=== PATIENT | male | born 1940 | race Caucasian/White ===

== ENCOUNTER 2019-08-25 13:30 | Inpatient (IN) | payer MEDICARE, OTHER ==
--- NOTE | 2019-08-25 14:24 | EDM.PDOC ---
ED HPI GENERAL MEDICAL PROBLEM - General Stated Complaint: SOB, MORE CONFUSED Time Seen by Provider: 08/25/19 14:18 Source of Information: Reports: Patient, Family History Limitations: Reports: Other (Patient is essentially nonverbal (mumbling and moaning only) and cannot provide me with any history.) - History of Present Illness INITIAL COMMENTS - FREE TEXT/NARRATIVE: 79-year-old male who presents to the emergency department via private vehicle with his and his brother. Apparently according to the nursing staff he was more responsive at this time but as I am seeing him now he is only mumbling and will not respond to any conversant fashion and is basically curved in a position on the bed according to the , the patient has been falling frequently over the past month (falling 4-5 times) and over the past 2 weeks he has had decreased activity with only walking very short distances with his walker with help from the and then basically going back to bed. Over the past 2-3 days, the reports that he has basically been in bed most of the time responding well to her at all. He has had decreased by mouth intake with only taking 2-3 spoonfuls of soup last night and a quarter of his grilled cheese sandwich. He also has been requiring or asking for his inhaler frequently and the reports that he seems to be quite short of breath with activity. She also reports that his urine has been dark and foul-smelling and he has had decreased urine output over the past 1-2 days as well. No cough. No fevers. No vomiting. The provides me with pretty much all the history. He has not really complained of pain in any place but he is not able to tell me if he has any pain or to quantitate or qualitate any pain. There are no other associated signs or symptoms. There are no other modifying factors. The tells me that she can basically does not take care with him at this point. Onset: Other (Progressively worsening over the past 2 weeks with much worse over the past 2-3 days.) Duration: Getting Worse Location: Reports: Other (Patient is unable to quantitate or qualitate) Quality: Reports: Other (Unknown) Improves with: Reports: Other Worsens with: Reports: Other (Unknown) - Related Data Allergies Allergy/AdvReac Type Severity Reaction Status Date / Time atorvastatin [From Lipitor] Allergy Cannot Verified 08/25/19 14:08 Remember cefuroxime [From Ceftin] Allergy Nausea Verified 08/25/19 14:08 clindamycin Allergy Itching Verified 08/25/19 14:08 sulfamethoxazole Allergy Cannot Verified 08/25/19 14:08 [From Bactrim] Remember trimethoprim [From Bactrim] Allergy Cannot Verified 08/25/19 14:08 Remember Home Meds: Home Meds Ciprofloxacin HCl [Cipro] 500 mg PO BID #20 tablet 06/08/18 [Rx] Albuterol/Ipratropium [Combivent Respimat] 1 puff QID 06/18/18 [History] Budesonide/Formoterol [Symbicort 160-4.5 MCG] 2 puff BID 06/18/18 [History] ClonazePAM [KlonoPIN] 0.5 - 1 mg PO BEDTIME 06/18/18 [History] Donepezil HCl 10 mg BEDTIME 06/18/18 [History] Finasteride 5 mg DAILY 06/18/18 [History] Ibuprofen [Motrin] 200 mg PO Q4H PRN 06/18/18 [History] Multivitamin [Multivitamins] 1 each PO DAILY 06/18/18 [History] Simvastatin [Zocor] 40 mg PO DAILY 06/18/18 [History] Tamsulosin HCl 0.4 mg DAILY 06/18/18 [History] Past Medical History Cardiovascular History: Reports: High Cholesterol Respiratory History: Reports: Asthma, Pneumonia, Recurrent Genitourinary History: Reports: BPH, Prostate Disorder, Retention, Urinary Musculoskeletal History: Reports: Fracture, Neck Pain, Chronic Other Musculoskeletal History: hx fx elbow Neurological History: Reports: Alzheimers Disease Psychiatric History: Reports: Alzheimers Disease, Dementia, Depression - Infectious Disease History Infectious Disease History: Reports: Chicken Pox, Measles - Past Surgical History HEENT Surgical History: Reports: Cataract Surgery GI Surgical History: Reports: Appendectomy, Hernia Repair/Other Male Surgical History: Reports: Suprapubic Catheter Placement, Vasectomy Neurological Surgical History: Reports: Scoliosis (Back surgery as a teenager but with no metal hardware.) Social & Family History - Tobacco Use Smoking Status *Q: Former Smoker (Smoked a pipe briefly about 40 years ago.) - Caffeine Use Caffeine Use: Reports: Coffee - Alcohol Use Alcohol Use History: No - Living Situation & Occupation Living situation: Reports: Occupation: Retired Social History Comment: Lives at home alone with his . It should be noted that the patient is a DNR/DNI. ED ROS GENERAL - Review of Systems Review Of Systems: Unable To Obtain (The patient is essentially nonverbal and he cannot provide me with any of this information. The review of systems is limited in what I can obtain from the and that is in the history of present illness.) Reason Not Obtained: Dementia and underlying acute serious medical condition ED EXAM, GENERAL - Physical Exam Exam: See Below Exam Limited By: No Limitations General Appearance: Lethargic, Thin, Cachetic Eye Exam: Bilateral Eye: Normal Inspection, PERRL Ears: Other (Wax in both ear canals) Ear Exam: Bilateral Ear: Auricle Normal Nose: Normal Inspection, Normal Mucosa, No Blood Throat/Mouth: Other (Dry membranes) Head: Atraumatic, Normocephalic Neck: Normal Inspection, Non-Tender Respiratory/Chest: No Respiratory Distress, Lungs Clear, Normal Breath Sounds, No Accessory Muscle Use, Chest Non-Tender Cardiovascular: Normal Peripheral Pulses, Regular Rate, Rhythm, No Edema Peripheral Pulses: 2+: Radial (L), Radial (R) GI/Abdominal: Normal Bowel Sounds, Soft, Non-Tender, No Distention, Other (SVT and in place) Back Exam: No: CVA Tenderness (R), CVA Tenderness (L) Extremities: No Pedal Edema, Normal Capillary Refill (But with cool hands) Neurological: Confused (Slow to respond and mumbles. No effective conversation. Patient apparently was more verbal and more responsive earlier in the nursing staff.), Other (Movement of his arms and legs seem symmetric to avoidance.) Skin Exam: Dry, Wound/Incision (Minor skin abrasion on his left) EKG INTERPRETATION EKG Date: 08/25/19 Time: 14:18 Rhythm: NSR Rate (Beats/Min): 76 [place]: Normal P-Wave: Enlarged ST-T: Normal QT: Prolonged Comparison: NA - No Prior EKG Course - Vital Signs Last Recorded V/S: Last Vital Signs Temp 35.4 C 08/25/19 14:30 Pulse 81 08/25/19 15:31 Resp 22 H 08/25/19 15:31 BP 102/38 L 08/25/19 15:31 Pulse Ox 89 L 08/25/19 15:31 - Orders/Labs/Meds Orders: Active Orders 24 hr Category Date Time Status Admission Status [Patient Status] [ADT] Routine ADT 08/25/19 16:35 Active Patient Status Manage Transfer [TRANSFER] Routine ADT 08/25/19 16:37 Ordered EKG Documentation Completion [RC] ASDIRECTED Care 08/25/19 14:41 Active Chest 1V Frontal [CR] Stat Exams 08/25/19 14:39 Taken Head wo Cont [CT] Stat Exams 08/25/19 14:39 Taken CULTURE BLOOD [BC] Urgent Lab 08/25/19 15:20 Received CULTURE BLOOD [BC] Urgent Lab 08/25/19 15:30 Received UA W/MICROSCOPIC [URIN] Stat Lab 08/25/19 16:31 Received Levofloxacin/Dextrose 5%-Water [Levaquin in D5W 750 MG/ Med 08/25/19 16:30 Active 150 ML] 750 mg Premix Bag 1 bag IV ONETIME Sodium Chloride 0.9% [Normal Saline] 1,000 ml Med 08/25/19 14:45 Active IV ASDIRECTED Sodium Chloride 0.9% [Normal Saline] 500 ml Med 08/25/19 16:19 Active IV .BOLUS Sodium Chloride 0.9% [Saline Flush] Med 08/25/19 14:39 Active 10 ml FLUSH ASDIRECTED PRN Blood Culture x2 Reflex Set [OM.PC] Urgent Oth 08/25/19 14:43 Ordered Peripheral IV Insertion Adult [OM.PC] Routine Oth 08/25/19 14:39 Ordered EKG 12 Lead [EK] Routine Ther 08/25/19 14:39 Ordered Medication Orders Sodium Chloride (Normal Saline) 1,000 mls @ 100 mls/hr IV ASDIRECTED ELOISA Sodium Chloride (Normal Saline) 500 mls @ 999 mls/hr IV .BOLUS ONE Stop: 08/25/19 16:49 Last Admin: 08/25/19 16:22 Dose: 999 mls/hr Levofloxacin/Dextrose 750 mg/ (Premix) 150 mls @ 100 mls/hr IV ONETIME ONE Stop: 08/25/19 17:59 Sodium Chloride (Saline Flush) 10 ml FLUSH ASDIRECTED PRN PRN Reason: Keep Vein Open Labs: Laboratory Tests 08/25/19 08/25/19 08/25/19 Range/Units 14:39 15:20 15:20 WBC 8.7 (4.5-12.0) X10-3/uL RBC 3.25 L (4.30-5.75) x10(6)uL Hgb 9.7 L (13.5-17.8) g/dL Hct 31.0 (30.0-51.3) % MCV 95.3 (80-96) fL MCH 30.0 (27.7-33.6) pg MCHC 31.4 L (32.2-35.4) g/dL RDW 22.0 H (11.5-15.5) % Plt Count 170 (125-369) X10(3)uL MPV 6.8 L (7.4-10.4) fL Neut % (Auto) 70.4 (46-82) % Lymph % (Auto) 20.0 (13-37) % Crosby % (Auto) 8.7 (4-12) % Eos % (Auto) 0 L (1.0-5.0) % Baso % (Auto) 1 (0-2) % Neut # (Auto) 6.1 (1.6-8.3) # Lymph # (Auto) 1.7 (0.6-5.0) # Crosby # (Auto) 0.8 (0.0-1.3) # Eos # (Auto) 0.0 (0.0-0.8) # Baso # (Auto) 0.1 (0.0-0.2) # PT 15.2 H (8.7-11.1) INR 1.58 H (0.89-1.13) POC VBG pH (7.31-7.41) POC VBG pCO2 (41-51) mmHG POC VBG HCO3 (23-28) mmol/L POC VBG Total CO2 (24-29) mmol/L POC VBG Base Excess (-2-3) mmol/L Sodium 150 H D (135-145) mmol/L Potassium 4.7 (3.5-5.3) mmol/L Chloride 107 (100-110) mmol/L Carbon Dioxide 33 H (21-32) mmol/L BUN 56 H D (7-18) mg/dL Creatinine 1.5 H (0.70-1.30) mg/dL Est Cr Clr Drug Dosing TNP Estimated GFR (MDRD) 45 L (>60) BUN/Creatinine Ratio 37.3 H (9-20) Glucose 151 H (80-116) mg/dL Lactic Acid (0.4-2.0) mmol/L Calcium 9.9 (8.6-10.2) mg/dL Magnesium 2.8 H (1.8-2.5) mg/dL Total Bilirubin 0.8 (0.1-1.3) mg/dL AST 105 H (5-25) IU/L ALT 47 H (12-36) U/L Alkaline Phosphatase 224 H (56-112) IU/L Troponin I (<0.017-0.056) ng/mL C-Reactive Protein (0.5-0.9) mg/dL Total Protein 6.4 (6.0-8.0) g/dL Albumin 2.7 L (3.2-4.6) g/dL Globulin 3.7 g/dL Albumin/Globulin Ratio 0.7 08/25/19 08/25/19 08/25/19 Range/Units 15:20 15:20 15:20 WBC (4.5-12.0) X10-3/uL RBC (4.30-5.75) x10(6)uL Hgb (13.5-17.8) g/dL Hct (30.0-51.3) % MCV (80-96) fL MCH (27.7-33.6) pg MCHC (32.2-35.4) g/dL RDW (11.5-15.5) % Plt Count (125-369) X10(3)uL MPV (7.4-10.4) fL Neut % (Auto) (46-82) % Lymph % (Auto) (13-37) % [place] % (Auto) (4-12) % Eos % (Auto) (1.0-5.0) % Baso % (Auto) (0-2) % Neut # (Auto) (1.6-8.3) # Lymph # (Auto) (0.6-5.0) # Crosby # (Auto) (0.0-1.3) # Eos # (Auto) (0.0-0.8) # Baso # (Auto) (0.0-0.2) # PT (8.7-11.1) INR (0.89-1.13) POC VBG pH (7.31-7.41) POC VBG pCO2 (41-51) mmHG POC VBG HCO3 (23-28) mmol/L POC VBG Total CO2 (24-29) mmol/L POC VBG Base Excess (-2-3) mmol/L Sodium (135-145) mmol/L Potassium (3.5-5.3) mmol/L Chloride (100-110) mmol/L Carbon Dioxide (21-32) mmol/L BUN (7-18) mg/dL Creatinine (0.70-1.30) mg/dL Est Cr Clr Drug Dosing Estimated GFR (MDRD) (>60) BUN/Creatinine Ratio (9-20) Glucose (80-116) mg/dL Lactic Acid 4.2 H* (0.4-2.0) mmol/L Calcium (8.6-10.2) mg/dL Magnesium (1.8-2.5) mg/dL Total Bilirubin (0.1-1.3) mg/dL AST (5-25) IU/L ALT (12-36) U/L Alkaline Phosphatase (56-112) IU/L Troponin I < 0.017 L (<0.017-0.056) ng/mL C-Reactive Protein 5.4 H* (0.5-0.9) mg/dL Total Protein (6.0-8.0) g/dL Albumin (3.2-4.6) g/dL Globulin g/dL Albumin/Globulin Ratio 08/25/19 Range/Units 15:20 WBC (4.5-12.0) X10-3/uL RBC (4.30-5.75) x10(6)uL Hgb (13.5-17.8) g/dL Hct (30.0-51.3) % MCV (80-96) fL MCH (27.7-33.6) pg MCHC (32.2-35.4) g/dL RDW (11.5-15.5) % Plt Count (125-369) X10(3)uL MPV (7.4-10.4) fL Neut % (Auto) (46-82) % Lymph % (Auto) (13-37) % [place] % (Auto) (4-12) % Eos % (Auto) (1.0-5.0) % Baso % (Auto) (0-2) % Neut # (Auto) (1.6-8.3) # Lymph # (Auto) (0.6-5.0) # [place] # (Auto) (0.0-1.3) # Eos # (Auto) (0.0-0.8) # Baso # (Auto) (0.0-0.2) # PT (8.7-11.1) INR (0.89-1.13) POC VBG pH 7.33 (7.31-7.41) POC VBG pCO2 57.6 H (41-51) mmHG POC VBG HCO3 30.6 H (23-28) mmol/L POC VBG Total CO2 32 H (24-29) mmol/L POC VBG Base Excess 5 H (-2-3) mmol/L Sodium (135-145) mmol/L Potassium (3.5-5.3) mmol/L Chloride (100-110) mmol/L Carbon Dioxide (21-32) mmol/L BUN (7-18) mg/dL Creatinine (0.70-1.30) mg/dL Est Cr Clr Drug Dosing Estimated GFR (MDRD) (>60) BUN/Creatinine Ratio (9-20) Glucose (80-116) mg/dL Lactic Acid (0.4-2.0) mmol/L Calcium (8.6-10.2) mg/dL Magnesium (1.8-2.5) mg/dL Total Bilirubin (0.1-1.3) mg/dL AST (5-25) IU/L ALT (12-36) U/L Alkaline Phosphatase (56-112) IU/L Troponin I (<0.017-0.056) ng/mL C-Reactive Protein (0.5-0.9) mg/dL Total Protein (6.0-8.0) g/dL Albumin (3.2-4.6) g/dL Globulin g/dL Albumin/Globulin Ratio Meds: Medications Generic Name Dose Route Start Last Admin Trade Name Freq PRN Reason Stop Dose Admin Sodium Chloride 1,000 mls @ 100 mls/hr 08/25/19 14:45 Normal Saline IV ASDIRECTED ELOISA Sodium Chloride 500 mls @ 999 mls/hr 08/25/19 16:19 08/25/19 16:22 Normal Saline IV 08/25/19 16:49 999 mls/hr .BOLUS ONE Administration Levofloxacin/Dextrose 750 mg/ 150 mls @ 100 mls/hr 08/25/19 16:30 Premix IV 08/25/19 17:59 ONETIME ONE Sodium Chloride 10 ml 08/25/19 14:39 Saline Flush FLUSH ASDIRECTED PRN Keep Vein Open Discontinued Medications Generic Name Dose Route Start Last Admin Trade Name Freq PRN Reason Stop Dose Admin Sodium Chloride 500 mls @ 999 mls/hr 08/25/19 14:42 08/25/19 15:42 Normal Saline IV 08/25/19 15:12 999 mls/hr .BOLUS ONE Administration - Radiology Interpretation Free Text/Narrative:: Portable chest x-ray shows bilateral filtrates per the radiologist.. CT scan of head showed atrophy with minimal bilateral subdural hygromas. There is no evidence of any acute trauma or acute stroke per the radiologist. Patient apparently had an echocardiogram performed at [facility] on 2019 and was essentially normal with an ejection fraction of 65% and no regional wall motion abnormalities. There was grade 1 left ventricular diastolic dysfunction, moderate tricuspid regurgitation and mild mitral regurgitation. He did have some evidence of pulmonary artery hypertension. - Re-Assessments/Exams Free Text/Narrative Re-Assessment/Exam: 08/25/19 15:35: Chest x-ray shows bilateral pneumonias. The CT scan of his head showed no acute abnormality. Blood tests are pending at this time. The patient appears to be rather severely dehydrated and with his bilateral pneumonias and his severe weakness and altered mental status, he will need admission with IV fluid hydration and IV antibiotics. I will await the lab results and I will then discuss the patient's case with Dr. Hayes. 08/25/19 16:38: Patient has an anemia has evidence of an acute kidney injury and the labs do support moderate to severe dehydration. He has an elevated lactic acid level which I think is mostly due to the dehydration but may also be related to sepsis. The patient cannot be safely treated as an outpatient. He will need a greater then 2 midnight hospital stay his plan of care and he may need placement after treating his acute illness. I did call and discuss the patient's case with Dr. Hayes and he will admit the patient. Departure - Departure Time of Disposition: 16:40 Disposition: Admitted As Inpatient 65 Condition: Fair Clinical Impression: Acute kidney injury, Severe dehydration Bilateral pneumonia Qualifiers: Pneumonia type: due to unspecified organism Lung location: lower lobe of lung Qualified Code(s): J18.9 - Pneumonia, unspecified organism Sepsis Qualifiers: Sepsis type: sepsis due to unspecified organism Sepsis acute organ dysfunction status: with acute organ dysfunction Severe sepsis acute organ dysfunction type : acute renal failure Acute renal failure type: unspecified Severe sepsis shock status: without septic shock Qualified Code(s): A41.9 - Sepsis, unspecified organism; R65.20 - Severe sepsis without septic shock; N17.9 - Acute kidney failure, unspecified Hypothermia Qualifiers: Encounter type: initial encounter Qualified Code(s): T68.XXXA - Hypothermia, initial encounter - Discharge Information Referrals: Shant Main MD [Primary Care Provider] - Sepsis Event Note - Focused Exam Vital Signs: Vital Signs Temp Temp Pulse Resp BP Pulse Ox 08/25/19 15:31 81 22 H 102/38 L 89 L 08/25/19 14:30 35.4 C 08/25/19 13:43 34.6 C L 78 20 112/91 H 99 Date Exam was Performed: 08/25/19 Time Exam was Performed: 16:38 - My Orders Last 24 Hours: My Active Orders 08/25/19 14:39 Chest 1V Frontal [CR] Stat Head wo Cont [CT] Stat Sodium Chloride 0.9% [Saline Flush] 10 ml FLUSH ASDIRECTED PRN Peripheral IV Insertion Adult [OM.PC] Routine EKG 12 Lead [EK] Routine 08/25/19 14:41 EKG Documentation Completion [RC] ASDIRECTED 08/25/19 14:43 Blood Culture x2 Reflex Set [OM.PC] Urgent 08/25/19 14:45 Sodium Chloride 0.9% [Normal Saline] 1,000 ml IV ASDIRECTED 08/25/19 15:20 CULTURE BLOOD [BC] Urgent 08/25/19 15:30 CULTURE BLOOD [BC] Urgent 08/25/19 16:19 Sodium Chloride 0.9% [Normal Saline] 500 ml IV .BOLUS 08/25/19 16:30 Levofloxacin/Dextrose 5%-Water [Levaquin in D5W 750 MG/150 ML] 750 mg Premix Bag 1 bag IV ONETIME 08/25/19 16:31 UA W/MICROSCOPIC [URIN] Stat 08/25/19 16:35 Admission Status [Patient Status] [ADT] Routine 08/25/19 16:37 Patient Status Manage Transfer [TRANSFER] Routine - Assessment/Plan Last 24 Hours: My Active Orders 08/25/19 14:39 Chest 1V Frontal [CR] Stat Head wo Cont [CT] Stat Sodium Chloride 0.9% [Saline Flush] 10 ml FLUSH ASDIRECTED PRN Peripheral IV Insertion Adult [OM.PC] Routine EKG 12 Lead [EK] Routine 08/25/19 14:41 EKG Documentation Completion [RC] ASDIRECTED 08/25/19 14:43 Blood Culture x2 Reflex Set [OM.PC] Urgent 08/25/19 14:45 Sodium Chloride 0.9% [Normal Saline] 1,000 ml IV ASDIRECTED 08/25/19 15:20 CULTURE BLOOD [BC] Urgent 08/25/19 15:30 CULTURE BLOOD [BC] Urgent 08/25/19 16:19 Sodium Chloride 0.9% [Normal Saline] 500 ml IV .BOLUS 08/25/19 16:30 Levofloxacin/Dextrose 5%-Water [Levaquin in D5W 750 MG/150 ML] 750 mg Premix Bag 1 bag IV ONETIME 08/25/19 16:31 UA W/MICROSCOPIC [URIN] Stat 08/25/19 16:35 Admission Status [Patient Status] [ADT] Routine 08/25/19 16:37 Patient Status Manage Transfer [TRANSFER] Routine
[2019-08-25] MEDS ORDERED: Sodium Chloride 0.9% 10 ML Syringe FLUSH PRN (14:39)
[2019-08-25] MEDS: Sodium Chloride 0.9% 500 ML IV ONE ×2 (15:42→16:22)
[2019-08-25] MEDS: Sodium Chloride 0.9% 1,000 ML IV SCH (16:55)
[2019-08-25] MEDS: Levofloxacin/Dextrose 5%-Water 750 MG in Premix Bag 1 BAG IV ONE (16:56)
--- NOTE | 2019-08-25 17:01 | CT ---
INDICATION: Altered mental status - dementia - trauma. CT HEAD WITHOUT CONTRAST: Spiral 3.75 mm axial sections were obtained through the brain without contrast 08/25/19 - no comparisons. Total exam DLP was 1657.32 mGy-cm. Minimal subdural hygromas are suggested which could be on the basis of frontoparietal atrophy although minimal chronic subdural hematomas could also have a similar appearance. Atrophy is felt to be more likely as the sulci are very prominent as in the frontoparietal area as well as the temporal area. Also , the lateral ventricles and third, and to a minimal extent the fourth ventricles were prominent compatible with central atrophy. No definite orbital abnormality was identified. No bleeding site or hematoma was seen. There are some minimal decreased densities scattered throughout the white matter compatible with mild degree of microvascular disease. There were some minimal calcifications in the area of the internal carotid artery on the right and the right vertebral artery also. Visualized paranasal sinuses and mastoid air cells were intact in appearance and well aerated. No definite cranial abnormality was seen. IMPRESSION: 1. No acute intracranial abnormality. 2. Cerebrovascular disease with minimal microvascular disease type changes in the white matter, although the cause of leukoencephalopathy cannot be excluded. 3. Arterial calcifications are noted. 4. Cortical and central atrophy noted with what appear to be subdural hygromas frontoparietal areas of small size bilaterally. Report was called to Dr. Miranda at 1527 hours. [facility]
--- NOTE | 2019-08-25 17:08 | CR ---
INDICATION: Weakness. CHEST, ONE VIEW: An AP portable upright view of the chest was obtained and was markedly limited due to the patient's dementia and inability to cooperate with the examination. It is compared with 10/28/11 examination. Severe dextroconvex rotoscoliosis of the lower thoracic spine is noted. There is a prominent rounded area adjacent to the aortic arch which could represent an aneurysm or even a mass, but should be correlated clinically with this limited examination. Bibasilar pleuroparenchymal changes are noted compatible with pneumonia and pleuritis and possibly atelectasis and appear to be more severe on the right than left. IMPRESSION: Limited portable study compatible with bibasilar pleuroparenchymal changes - correlate clinically. The appearance of a mass in the superior mediastinum at the suprahilar area on the right is difficult to exclude, but may simply be on the basis of rotation of the patient. When clinically possible , full inspiration PA and lateral views of the chest may certainly be helpful. Report was called to Dr. Miranda at 1527 hours. [facility]
--- NOTE | 2019-08-25 23:11 | HP ---
ADMISSION DATE: 08/25/2019 CHIEF COMPLAINT: Weakness, dehydration, and lethargy. HISTORY OF PRESENT ILLNESS: Mr. Patel is an 79-year-old man from [place] with a history of Alzheimer's type dementia, BPH with bladder outlet obstruction and chronic suprapubic indwelling catheter, chronic congestive heart failure, COPD and overall steady decline in condition. The patient has been getting weaker over the past month. He was seen in July with continued physical and intellectual decline, and he was started on diuretic. He was seen on August 08 at [facility], and his diuretic was increased to 20 mg b.i.d. for 4 days due to increased leg swelling and then back down to 20 mg daily. He has continued to get weaker over that time for the past 2 weeks with falls, more confusion, poor oral intake, shortness of breath. He has been confined to bed for the past 2 days. His has been primary caregiver, but she has been unable to manage him now with his declining condition. For this reason, he was brought to the emergency room. He was evaluated by Dr. Miranda, and is now admitted to acute care at [facility]. PAST MEDICAL HISTORY: Late onset Alzheimer's. He has also had COPD, bladder outlet obstruction with suprapubic permanent catheter placement. He has had previous admission for acute renal insufficiency. He has had long-standing scoliosis, asthma, varicose veins with chronic venous insufficiency, depression, history of kidney stones, cervical dystonia, long-standing asthma and COPD requiring inhalers. MEDICATIONS: 1. Furosemide 20 mg b.i.d. 2. Tamsulosin 0.4 mg daily. 3. Simvastatin 40 mg daily. 4. Multivitamin one daily. 5. Ibuprofen p.r.n. 6. Finasteride 5 mg daily. 7. Donepezil 10 mg at bedtime. 8. Clonazepam 1/2 to 1 mg at bedtime. 9. Symbicort 160 two puffs b.i.d. 10.Combivent 1 puff q.i.d. ALLERGIES: Atorvastatin, cefuroxime, clindamycin, sulfa, and Bactrim. FAMILY AND SOCIAL HISTORY: The patient has been living with his at home. She has had increasing difficulty in taking care of him. REVIEW OF SYSTEMS: Not obtainable from the patient but from 's history showed steady decline in condition, weakness, etc. PHYSICAL EXAMINATION: GENERAL: He is pale, thin, cachectic, and curled in a position. He is extremely profoundly lethargic and will stir only to vigorous stimulation. He does not open his eyes for me or answer questions. VITAL SIGNS: Blood pressure 112/91, pulse 78 and regular, respirations 20, O2 saturation 99% on 3 L nasal cannula, 89% on room air, temp 95.7. SKIN: Shows no rash, but lower extremities show extensive venous stasis changes, varicose veins, and cracked, fissured skin over his feet. HEENT: Shows his mouth to be extremely dry. He did not open his eyes for me. LUNGS: Had distant breath sounds. I could hear no consolidation. HEART: Regular. No murmur heard. ABDOMEN: Soft, nontender with a suprapubic catheter in place. EXTREMITIES: Trace edema at the ankles but loose, dry cracked, fissured skin. LABORATORY DATA: White count 8700, hemoglobin 9.7. INR 1.5, pH 7.33, sodium 150, potassium 4.7, BUN 56, creatinine 1.5, lactic acid 4.2, CRP 5.4. Urinalysis negative. Troponin negative. Head CT unremarkable. Chest x-ray, compromised by difficult body positioning. This shows an extensive pneumonia in the right lower lobe and moderate pneumonia in the left lower lobe with massive cardiomegaly. ASSESSMENT: An 79-year-old man with Alzheimer's type dementia, asthma with chronic obstructive pulmonary disease, now admitted with extensive bilateral pneumonia, cachexia, dehydration, and severe decline in function. PLAN: He is admitted to acute care at [facility]. He has received IV fluid in the emergency room. We will continue this for rehydration. He is started on Levaquin antibiotic. We will continue this. We will provide palliative care measures for Mr. Patel's comfort. His dementia, COPD, congestive heart failure and likely look into longer-term placement when comes time for discharge. /[id number] RO/MODL
--- NOTE | 2019-08-26 02:53 | PCM.PN ---
- General Info Date of Service: 08/25/19 Admission Dx/Problem (Free Text): 79-year-old male who was admitted earlier today secondary to bilateral pneumonia with sepsis dehydration with acute kidney injury. I was called by the nursing staff to see the patient secondary to no respirations and no pulse. The patient was a DNR and DNI and respecting these wishes no resuscitative efforts were instituted by the nursing staff. On my evaluation of the patient. The patient was apneic. No heart tones were heard. No pulses in the carotid or femoral area. The patient was pronounced at 9:46 PM. I did call and discuss this with the patient's . I answered her questions. Although, the patient's was not expected so soon after admission, the patient was quite ill and in a frail and carious state with decreasing mental status at admission and therefore during this admission was considered to be a possibility. - Patient Data Vitals - Most Recent: Last Vital Signs Temp 36.4 C 08/25/19 20:30 Pulse 78 08/25/19 20:30 Resp 20 08/25/19 20:30 BP 80/40 L 08/25/19 20:30 Pulse Ox 90 L 08/25/19 20:30 Weight - Most Recent: 43.715 kg I&O - Last 24 Hours: Intake & Output 08/25/19 08/25/19 08/26/19 14:59 22:59 06:59 Intake Total 319 Output Total 50 Balance 269 Lab Results Last 24 Hours: Laboratory Results - last 24 hr 08/25/19 08/25/19 08/25/19 Range/Units 14:39 15:20 15:20 WBC 8.7 (4.5-12.0) X10-3/uL RBC 3.25 L (4.30-5.75) x10(6)uL Hgb 9.7 L (13.5-17.8) g/dL Hct 31.0 (30.0-51.3) % MCV 95.3 (80-96) fL MCH 30.0 (27.7-33.6) pg MCHC 31.4 L (32.2-35.4) g/dL RDW 22.0 H (11.5-15.5) % Plt Count 170 (125-369) X10(3)uL MPV 6.8 L (7.4-10.4) fL Neut % (Auto) 70.4 (46-82) % Lymph % (Auto) 20.0 (13-37) % [place] % (Auto) 8.7 (4-12) % Eos % (Auto) 0 L (1.0-5.0) % Baso % (Auto) 1 (0-2) % Neut # (Auto) 6.1 (1.6-8.3) # Lymph # (Auto) 1.7 (0.6-5.0) # [place] # (Auto) 0.8 (0.0-1.3) # Eos # (Auto) 0.0 (0.0-0.8) # Baso # (Auto) 0.1 (0.0-0.2) # PT 15.2 H (8.7-11.1) INR 1.58 H (0.89-1.13) POC VBG pH (7.31-7.41) POC VBG pCO2 (41-51) mmHG POC VBG HCO3 (23-28) mmol/L POC VBG Total CO2 (24-29) mmol/L POC VBG Base Excess (-2-3) mmol/L Sodium 150 H D (135-145) mmol/L Potassium 4.7 (3.5-5.3) mmol/L Chloride 107 (100-110) mmol/L Carbon Dioxide 33 H (21-32) mmol/L BUN 56 H D (7-18) mg/dL Creatinine 1.5 H (0.70-1.30) mg/dL Est Cr Clr Drug Dosing TNP Estimated GFR (MDRD) 45 L (>60) BUN/Creatinine Ratio 37.3 H (9-20) Glucose 151 H (80-116) mg/dL Lactic Acid (0.4-2.0) mmol/L Calcium 9.9 (8.6-10.2) mg/dL Magnesium 2.8 H (1.8-2.5) mg/dL Total Bilirubin 0.8 (0.1-1.3) mg/dL AST 105 H (5-25) IU/L ALT 47 H (12-36) U/L Alkaline Phosphatase 224 H (56-112) IU/L Troponin I (<0.017-0.056) ng/mL C-Reactive Protein (0.5-0.9) mg/dL Total Protein 6.4 (6.0-8.0) g/dL Albumin 2.7 L (3.2-4.6) g/dL Globulin 3.7 g/dL Albumin/Globulin Ratio 0.7 Urine Color Urine Appearance Urine pH Ur Specific Force Urine Protein Urine Glucose (UA) Urine Ketones Urine Occult Blood Urine Nitrite Urine Bilirubin Urine Urobilinogen Ur Leukocyte Esterase Urine RBC Urine WBC Ur Epithelial Cells Ur Squamous Epith Cells Ur Renal Epithelial Cell Calcium Oxalate Crystal Uric Acid Crystals Triple Phos Crystals Other Crystals Amorphous Sediment Urine Bacteria Hyaline Casts Fine Granular Casts Coarse Granular Casts Waxy Casts RBC Casts WBC Casts Urine Mucus Urine Trichomonas Urine Yeast Urine Sperm Ur Oval Fat Bodies Urinalysis Comment 08/25/19 08/25/19 08/25/19 Range/Units 15:20 15:20 15:20 WBC (4.5-12.0) X10-3/uL RBC (4.30-5.75) x10(6)uL Hgb (13.5-17.8) g/dL Hct (30.0-51.3) % MCV (80-96) fL MCH (27.7-33.6) pg MCHC (32.2-35.4) g/dL RDW (11.5-15.5) % Plt Count (125-369) X10(3)uL MPV (7.4-10.4) fL Neut % (Auto) (46-82) % Lymph % (Auto) (13-37) % [place] % (Auto) (4-12) % Eos % (Auto) (1.0-5.0) % Baso % (Auto) (0-2) % Neut # (Auto) (1.6-8.3) # Lymph # (Auto) (0.6-5.0) # [place] # (Auto) (0.0-1.3) # Eos # (Auto) (0.0-0.8) # Baso # (Auto) (0.0-0.2) # PT (8.7-11.1) INR (0.89-1.13) POC VBG pH (7.31-7.41) POC VBG pCO2 (41-51) mmHG POC VBG HCO3 (23-28) mmol/L POC VBG Total CO2 (24-29) mmol/L POC VBG Base Excess (-2-3) mmol/L Sodium (135-145) mmol/L Potassium (3.5-5.3) mmol/L Chloride (100-110) mmol/L Carbon Dioxide (21-32) mmol/L BUN (7-18) mg/dL Creatinine (0.70-1.30) mg/dL Est Cr Clr Drug Dosing Estimated GFR (MDRD) (>60) BUN/Creatinine Ratio (9-20) Glucose (80-116) mg/dL Lactic Acid 4.2 H* (0.4-2.0) mmol/L Calcium (8.6-10.2) mg/dL Magnesium (1.8-2.5) mg/dL Total Bilirubin (0.1-1.3) mg/dL AST (5-25) IU/L ALT (12-36) U/L Alkaline Phosphatase (56-112) IU/L Troponin I < 0.017 L (<0.017-0.056) ng/mL C-Reactive Protein 5.4 H* (0.5-0.9) mg/dL Total Protein (6.0-8.0) g/dL Albumin (3.2-4.6) g/dL Globulin g/dL Albumin/Globulin Ratio Urine Color Urine Appearance Urine pH Ur Specific Force Urine Protein Urine Glucose (UA) Urine Ketones Urine Occult Blood Urine Nitrite Urine Bilirubin Urine Urobilinogen Ur Leukocyte Esterase Urine RBC Urine WBC Ur Epithelial Cells Ur Squamous Epith Cells Ur Renal Epithelial Cell Calcium Oxalate Crystal Uric Acid Crystals Triple Phos Crystals Other Crystals Amorphous Sediment Urine Bacteria Hyaline Casts Fine Granular Casts Coarse Granular Casts Waxy Casts RBC Casts WBC Casts Urine Mucus Urine Trichomonas Urine Yeast Urine Sperm Ur Oval Fat Bodies Urinalysis Comment 08/25/19 08/25/19 08/25/19 Range/Units 15:20 16:31 17:38 WBC (4.5-12.0) X10-3/uL RBC (4.30-5.75) x10(6)uL Hgb (13.5-17.8) g/dL Hct (30.0-51.3) % MCV (80-96) fL MCH (27.7-33.6) pg MCHC (32.2-35.4) g/dL RDW (11.5-15.5) % Plt Count (125-369) X10(3)uL MPV (7.4-10.4) fL Neut % (Auto) (46-82) % Lymph % (Auto) (13-37) % [place] % (Auto) (4-12) % Eos % (Auto) (1.0-5.0) % Baso % (Auto) (0-2) % Neut # (Auto) (1.6-8.3) # Lymph # (Auto) (0.6-5.0) # [place] # (Auto) (0.0-1.3) # Eos # (Auto) (0.0-0.8) # Baso # (Auto) (0.0-0.2) # PT (8.7-11.1) INR (0.89-1.13) POC VBG pH 7.33 (7.31-7.41) POC VBG pCO2 57.6 H (41-51) mmHG POC VBG HCO3 30.6 H (23-28) mmol/L POC VBG Total CO2 32 H (24-29) mmol/L POC VBG Base Excess 5 H (-2-3) mmol/L Sodium (135-145) mmol/L Potassium (3.5-5.3) mmol/L Chloride (100-110) mmol/L Carbon Dioxide (21-32) mmol/L BUN (7-18) mg/dL Creatinine (0.70-1.30) mg/dL Est Cr Clr Drug Dosing Estimated GFR (MDRD) (>60) BUN/Creatinine Ratio (9-20) Glucose (80-116) mg/dL Lactic Acid (0.4-2.0) mmol/L Calcium (8.6-10.2) mg/dL Magnesium (1.8-2.5) mg/dL Total Bilirubin (0.1-1.3) mg/dL AST (5-25) IU/L ALT (12-36) U/L Alkaline Phosphatase (56-112) IU/L Troponin I (<0.017-0.056) ng/mL C-Reactive Protein (0.5-0.9) mg/dL Total Protein (6.0-8.0) g/dL Albumin (3.2-4.6) g/dL Globulin g/dL Albumin/Globulin Ratio Urine Color Cancelled Yellow Urine Appearance Cancelled Slightly cloudy Urine pH Cancelled 7.0 H Ur Specific Force Cancelled 1.010 Urine Protein Cancelled 500 H Urine Glucose (UA) Cancelled Normal Urine Ketones Cancelled 15 H Urine Occult Blood Cancelled Large H Urine Nitrite Cancelled Negative Urine Bilirubin Cancelled Negative Urine Urobilinogen Cancelled 1 H Ur Leukocyte Esterase Cancelled Large H Urine RBC Cancelled 10-20 H Urine WBC Cancelled 75-100 H Ur Epithelial Cells Cancelled Ur Squamous Epith Cells Cancelled Few H Ur Renal Epithelial Cell Cancelled Calcium Oxalate Crystal Cancelled Uric Acid Crystals Cancelled Triple Phos Crystals Cancelled Other Crystals Cancelled Amorphous Sediment Cancelled Urine Bacteria Cancelled Many H Hyaline Casts Cancelled Fine Granular Casts Cancelled Coarse Granular Casts Cancelled Waxy Casts Cancelled RBC Casts Cancelled WBC Casts Cancelled Urine Mucus Cancelled Urine Trichomonas Cancelled Urine Yeast Cancelled Urine Sperm Cancelled Ur Oval Fat Bodies Cancelled Urinalysis Comment Cancelled [place] Results Last 24 Hours: Microbiology 08/25/19 15:10 Influenza Type A Antigen Screen - Final Nasopharyngeal Swab NEGATIVE INFLUENZA A VIRUS AG REFERENCE RANGE: NEGATIVE Influenza Type B Antigen Screen - Final NEGATIVE INFLUENZA B VIRUS AG REFERENCE RANGE: NEGATIVE Med Orders - Current: Current Medications Discontinued Medications Sodium Chloride (Normal Saline) 500 mls @ 999 mls/hr IV .BOLUS ONE Stop: 08/25/19 15:12 Last Admin: 08/25/19 15:42 Dose: 999 mls/hr Sodium Chloride (Normal Saline) 1,000 mls @ 100 mls/hr IV ASDIRECTED ELOISA Last Admin: 08/25/19 16:55 Dose: 100 mls/hr Sodium Chloride (Normal Saline) 500 mls @ 999 mls/hr IV .BOLUS ONE Stop: 08/25/19 16:49 Last Admin: 08/25/19 16:22 Dose: 999 mls/hr Levofloxacin/Dextrose 750 mg/ (Premix) 150 mls @ 100 mls/hr IV ONETIME ONE Stop: 08/25/19 17:59 Last Admin: 08/25/19 16:56 Dose: 100 mls/hr Sodium Chloride (Saline Flush) 10 ml FLUSH ASDIRECTED PRN PRN Reason: Keep Vein Open - Exam Physical Findings Comments:: At my evaluation of the patient, the patient had no pulse and no respirations. There were no heart tones on auscultation. Sepsis Event Note - Evaluation Sepsis Screening Result: No Definite Risk - Focused Exam Vital Signs: Vital Signs Temp Pulse Resp BP BP Pulse Ox 08/25/19 20:30 36.4 C 78 20 80/40 L 90 L 08/25/19 18:19 94 L 08/25/19 18:08 36.1 C 80 20 95 08/25/19 17:30 36.2 C 81 20 103/40 L 99 08/25/19 15:31 81 22 H 102/38 L 89 L Date Exam was Performed: 08/26/19 Time Exam was Performed: 04:44 - Problem List & Annotations (1) Cardiopulmonary arrest SNOMED Code(s): 084656194 Code(s): I46.9 - CARDIAC ARREST, CAUSE UNSPECIFIED Status: Acute Priority : High Onset Date: ~08/25/19 - Problem List Review Problem List Initiated/Reviewed/Updated: Yes - My Orders Last 24 Hours: My Active Orders 08/25/19 14:39 Peripheral IV Insertion Adult [OM.PC] Routine EKG 12 Lead [EK] Routine 08/25/19 14:43 Blood Culture x2 Reflex Set [OM.PC] Urgent 08/25/19 15:20 CULTURE BLOOD [BC] Urgent 08/25/19 15:30 CULTURE BLOOD [BC] Urgent 08/25/19 16:35 Admission Status [Patient Status] [ADT] Routine 08/25/19 19:25 CULTURE URINE [RM] Routine - Assessment Assessment:: Cardiopulmonary arrest - Plan Plan:: The patient was pronounced at 9:46 PM. His appeared to be be due to natural causes and he will be released to the home.
== END 2019-08-26 00:05 | disposition expired | DRG 871 ==
LOC: FB.ED 13:30 → FB.MS 16:35
PROVIDERS: ADMIT Family Medicine; ATTEND Family Medicine
DX: A41.9 Sepsis, unspecified organism (principal); J18.9 Pneumonia, unspecified organism; N13.8 Other obstructive and reflux uropathy; N17.9 Acute kidney failure, unspecified; R64 Cachexia; Z68.1 Body mass index [BMI] 19.9 or less, adult; J45.909 Unspecified asthma, uncomplicated; E44.0 Moderate protein-calorie malnutrition; Z66 Do not resuscitate; I46.9 Cardiac arrest, cause unspecified; R65.20 Severe sepsis without septic shock; E86.0 Dehydration; F02.80 Dementia in other diseases classified elsewhere, unspecified severity, without behavioral disturbance, psychotic disturbance, mood disturbance, and anxiety; J44.9 Chronic obstructive pulmonary disease, unspecified; I83.90 Asymptomatic varicose veins of unspecified lower extremity; F32.9 Major depressive disorder, single episode, unspecified; I50.9 Heart failure, unspecified; R29.6 Repeated falls; E78.00 Pure hypercholesterolemia, unspecified; N40.1 Benign prostatic hyperplasia with lower urinary tract symptoms; N32.0 Bladder-neck obstruction; R33.8 Other retention of urine; G89.29 Other chronic pain; M54.2 Cervicalgia; Z96.0 Presence of urogenital implants; M41.9 Scoliosis, unspecified; T68.XXXA Hypothermia, initial encounter; R15.9 Full incontinence of feces; G30.1 Alzheimer's disease with late onset; I87.2 Venous insufficiency (chronic) (peripheral); G24.3 Spasmodic torticollis; Z79.51 Long term (current) use of inhaled steroids; Z88.8 Allergy status to other drugs, medicaments and biological substances; Z88.1 Allergy status to other antibiotic agents; Z88.2 Allergy status to sulfonamides; Z79.899 Other long term (current) drug therapy; Z87.442 Personal history of urinary calculi; Z87.01 Personal history of pneumonia (recurrent); Z87.81 Personal history of (healed) traumatic fracture; Z86.19 Personal history of other infectious and parasitic diseases; Z98.49 Cataract extraction status, unspecified eye; Z90.49 Acquired absence of other specified parts of digestive tract; Z98.890 Other specified postprocedural states; Z98.52 Vasectomy status; Z87.891 Personal history of nicotine dependence
CPT/HCPCS: 36415; 70450; 71045; 80053; 81001; 82803; 83605; 83735; 84484; 85025; 85610; 86140; 87040; 87086; 87088; 87186; 87804; 87804-59; 93005; 93010; 96360; 99285; 99285-25; J1956; J7030; J7040